=== PATIENT | female | born 1970 | race American Indian/Alaskan Native ===

== ENCOUNTER 2017-08-10 02:45 | Emergency (ER) | payer MEDICAID ==
[2017-08-10 02:45] VITALS: BMI 35.7
--- NOTE | 2017-08-10 03:20 | ED PDOC ---
Arrival/HPI - General Chief Complaint: High Blood Pressure Time Seen by Provider: 08/10/17 03:12 Historian: Patient - History of Present Illness Narrative History of Present Illness (Text): 08/10/17 03:19 A 46 year old female, whose past medical history includes RA and hypertension ( noncompliant with medication), presents to the emergency department complaining of headache. Patient reports she stopped taking her blood pressure medications about a year ago. Patient presents with headache and high blood pressure. Patient denies any chest pain, shortness of breath or any other complaints at this time. Symptom Onset: Sudden Symptom Course: Unchanged Activities at Onset: Rest Context: Home Past Medical History - Provider Review Nursing Documentation Reviewed: Yes - Infectious Disease Hx of Infectious Diseases: None - Cardiac Hx Cardiac Disorders: Yes Hx Hypertension: Yes - Pulmonary Hx Respiratory Disorders: No - Neurological Hx Neurological Disorder: No - HEENT Hx HEENT Disorder: Yes (BLURRY VISION) - Renal Hx Renal Disorder: No - Endocrine/Metabolic Hx Endocrine Disorders: No (GESTATIONAL DIABETES) - Hematological/Oncological Hx Blood Disorders: No - Integumentary Hx Dermatological Disorder: No - Musculoskeletal/Rheumatological Hx Musculoskeletal Disorders: Yes Hx Falls: No - Gastrointestinal Hx Gastrointestinal Disorders: No - Genitourinary/Gynecological Hx Genitourinary Disorders: No (SMOKES CIGARETTES,DRINKS ALCOHOL SOCIALLY) - Psychiatric Hx Psychophysiologic Disorder: No Hx Substance Use: No - Surgical History Hx Section: Yes (x2) Other/Comment: benign cyst removed from right breast - Anesthesia Hx Anesthesia: Yes Hx Anesthesia Reactions: No Hx Malignant Hyperthermia: No - Suicidal Assessment Feels Threatened In Home Enviroment: No Family/Social History - Physician Review Nursing Documentation Reviewed: Yes Family/Social History: No Known Family HX Smoking Status: Current Some Days Smoker Hx Alcohol Use: Yes (SOCIALLY) Frequency of alcohol use: Socially Hx Substance Use: No Allergies/Home Meds Allergies/Adverse Reactions: Allergies No Known Allergies Allergy (Verified 08/10/17 03:06) Review of Systems - Physician Review All systems were reviewed & negative as marked: Yes - Review of Systems Respiratory: absent: SOB Cardiovascular: absent: Chest Pain Neurological: Headache Physical Exam Vital Signs Reviewed: Yes Vital Signs Temp Pulse Resp BP Pulse Ox 08/10/17 06:20 98.2 F 90 18 172/95 H 100 08/10/17 05:26 96 H 175/95 H 08/10/17 04:42 92 H 17 156/100 H 100 08/10/17 04:37 96 H 171/113 H 08/10/17 03:53 89 201/120 H 08/10/17 03:10 98.2 F 94 H 18 224/144 H 98 Temperature: Afebrile Blood Pressure: Hypertensive Pulse: Regular Respiratory Rate: Normal Appearance: Positive for: Well-Appearing, Non-Toxic, Comfortable Pain Distress: None Mental Status: Positive for: Alert and Oriented X 3 - Systems Exam Head: Present: Atraumatic, Normocephalic Pupils: Present: PERRL Extroacular Muscles: Present: EOMI Conjunctiva: Present: Normal Mouth: Present: Moist Mucous Membranes Neck: Present: Normal Range of Motion Respiratory/Chest: Present: Clear to Auscultation, Good Air Exchange. No: Respiratory Distress, Accessory Muscle Use Cardiovascular: Present: Regular Rate and Rhythm, Normal S1, S2. No: Murmurs Abdomen: Present: Normal Bowel Sounds. No: Tenderness, Distention, Peritoneal Signs Back: Present: Normal Inspection Upper Extremity: Present: Normal Inspection. No: Cyanosis, Edema Lower Extremity: Present: Normal Inspection. No: Edema Neurological: Present: GCS=15, CN II-XII Intact, Speech Normal Skin: Present: Warm, Dry, Normal Color. No: Rashes Psychiatric: Present: Alert, Oriented x 3, Normal Insight, Normal Concentration Medical Decision Making ED Course and Treatment: 08/10/17 03:18 Impression: A 46 year old female with headache and high blood pressure. Plan: -- CT head -- EKG -- labs -- Apresoline, Reglan -- Reassess and disposition Prior Visits: Notes and results from previous visits were reviewed. Patient was last seen in the emergency department on 12/20/14 for evaluation of chest pain, headache and blurry vision. 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 There is mild patchy left more than right periventricular hypodensity likely representing small vessel ischemic change. No hemorrhage. Ventricles: Unremarkable. No ventriculomegaly. Bones/joints: Unremarkable. No acute fracture. Soft tissues: Unremarkable. Sinuses: Unremarkable. No acute sinusitis. Mastoid air cells: Unremarkable. No mastoid effusion. Orbits: The globe and lens are intact. IMPRESSION: No evidence of an acute intracranial hemorrhage, midline shift or mass effect is identified. Dictated and Authenticated by: Yecenia Chiu MD 08/10/17 05:00 On re-evaluation, patient feels better and is in no acute distress. I have discussed the results and plan with the patient, who expresses understanding. Patient in agreement with plan to be discharged home. Patient is stable for discharge. Patient was instructed to follow up with physician or return if symptoms worsen or new concerning symptoms arise. 08/10/17 05:01 EKG: Ordered, reviewed, and independently interpreted the EKG. Rate : 89 BPM Rhythm : NSR Interpretation : Nonspecific ST segment changes - Lab Interpretations Lab Results: 08/10/17 03:15 08/10/17 03:15 Lab Results 08/10/17 03:15: Sodium 140, Potassium 5.1 H, Chloride 102, Carbon Dioxide 31, Anion Gap 12, BUN 11, Creatinine 0.8, Est GFR ( Amer) > 60, Est GFR (Non- Af Amer) > 60, Random Glucose 136 H, Calcium 9.5, Total Bilirubin 1.0, AST 65 H , ALT 19, Alkaline Phosphatase 59, Total Protein 8.3, Albumin 4.4, Globulin 4.0 , Albumin/Globulin Ratio 1.1 08/10/17 03:15: WBC 8.6, RBC 4.94, Hgb 13.9, Hct 42.2, MCV 85.4, MCH 28.1, MCHC 32.9, RDW 13.9, Plt Count 197, MPV 12.6 H, Gran % 72.4 H, Lymph % (Auto) 19.1 L , Ware % (Auto) 6.2 H, Eos % (Auto) 1.9, Baso % (Auto) 0.4, Gran # 6.20, Lymph # (Auto) 1.6, Ware # (Auto) 0.5, Eos # (Auto) 0.2, Baso # (Auto) 0.03 I have reviewed the lab results: Yes - RAD Interpretation Radiology Orders: 08/10/17 03:15 HEAD W/O CONTRAST [CT] Stat - EKG Interpretation Interpreted by ED Physician: Yes Type: 12 lead EKG - Medication Orders Current Medication Orders: Discontinued Medications Hydralazine HCl (Apresoline) 10 mg IVP STAT STA Stop: 08/10/17 03:19 Last Admin: 08/10/17 03:53 Dose: 10 mg IVP Administration Document 08/10/17 03:53 IT (Rec: 08/10/17 03:53 IT [id number]) Charges for Administration # of IVP Administrations 1 MAR Pulse and Blood Pressure Document 08/10/17 03:53 IT (Rec: 08/10/17 03:53 IT [id number]) Pulse Pulse Rate (60-90) 89 Blood Pressure Blood Pressure (100/60-150/90) 201/120 Labetalol HCl (Trandate) 20 mg IV STAT STA Stop: 08/10/17 04:13 Last Admin: 08/10/17 04:37 Dose: 20 mg eMAR Start Stop Document 08/10/17 04:37 IT (Rec: 08/10/17 04:38 IT [id number]) Intravenous Solution Start Date 08/10/17 Start Time 04:38 MAR Pulse and Blood Pressure Document 08/10/17 04:37 IT (Rec: 08/10/17 04:38 IT [id number]) Pulse Pulse Rate (60-90) 96 Blood Pressure Blood Pressure (100/60-150/90) 171/113 Lisinopril (Zestril) 10 mg PO STAT STA Stop: 08/10/17 05:03 Lisinopril (Zestril) 10 mg PO STAT STA Stop: 08/10/17 05:02 Last Admin: 08/10/17 05:26 Dose: 10 mg MAR Pulse and Blood Pressure Document 08/10/17 05:26 IT (Rec: 08/10/17 05:26 IT [id number]) Pulse Pulse Rate (60-90) 96 Blood Pressure Blood Pressure (100/60-150/90) 175/95 Metoclopramide HCl (Reglan) 10 mg IVP ONCE ONE Stop: 08/10/17 03:15 Last Admin: 08/10/17 03:54 Dose: 10 mg IVP Administration Document 08/10/17 03:54 IT (Rec: 08/10/17 03:54 IT [id number]) Charges for Administration # of IVP Administrations 1 - Scribe Statement The provider has reviewed the documentation as recorded by the Richi Billingsley Provider Scribe Attestation: All medical record entries made by the Scribe were at my direction and personally dictated by me. I have reviewed the chart and agree that the record accurately reflects my personal performance of the history, physical exam, medical decision making, and the department course for this patient. I have also personally directed, reviewed, and agree with the discharge instructions and disposition. Disposition/Present on Arrival - Present on Arrival Any Indicators Present on Arrival: No History of DVT/PE: No History of Uncontrolled Diabetes: No Urinary Catheter: No History of Decub. Ulcer: No History Surgical Site Infection Following: None - Disposition Have Diagnosis and Disposition been Completed?: Yes Diagnosis: Hypertension Disposition: HOME/ ROUTINE Disposition Time: 05:00 Condition: GOOD Discharge Instructions (ExitCare): High Blood Pressure in Adults Prescriptions: Lisinopril [Prinivil] 10 mg PO DAILY #30 tablet Referrals: Park Schuster MD [Primary Care Provider] - Follow up with primary Forms: [facility] (Urdu)
[2017-08-10 03:59] LABS: BASO # 0.03 K/mm3 (0.0-2.0); BASO % 0.4 % (0.0-3.0); EOS # 0.2 (0.0-0.7); EOS % 1.9 % (1.5-5.0); GRAN # 6.2 (1.4-6.5); GRAN % 72.4 % (50.0-68.0); HEMOGLOBIN 13.9 g/dL (12.0-16.0); LYMPH # 1.6 (1.2-3.4); LYMPH % 19.1 % (22.0-35.0); MEAN CELL VOLUME 85.4 fl (80.0-105.0); MEAN CORPUSCULAR HEMOGLOBIN 28.1 pg (25.0-35.0); MEAN CORPUSCULAR HGB CONC 32.9 g/dl (31.0-37.0); MEAN PLATELET VOLUME 12.6 fl (7.0-11.0); MONO # 0.5 (0.1-0.6); MONO % 6.2 % (1.0-6.0); RBC 4.94 10^6/uL (3.5-6.1); RED CELL DISTRIBUTION WIDTH 13.9 % (11.5-14.5); WHITE BLOOD COUNT 8.6 10^3/ul (4.5-11.0)
[2017-08-10 04:03] LABS: CALCIUM 9.5 mg/dL (8.4-10.5); GFR AFRICAN-AMERICAN > 60; GFR NON-AFRICAN AMERICAN > 60
[2017-08-10 04:10] LABS: ALB/GLOB RATIO 1.1 (1.1-1.8); ALBUMIN 4.4 g/dL (3.0-4.8); ALT/SGPT 19 U/L (7-56); AST/SGOT 65 U/L (14-36); BLOOD UREA NITROGEN 11 mg/dL (7-21)
[2017-08-10] MEDS ORDERED: Labetalol 5 mg/ml Inj 20ML IV STA (04:12)
--- NOTE | 2017-08-10 04:40 | CT ---
EXAM: CT Head Without Intravenous Contrast CLINICAL HISTORY: 46 years old, female; Pain; Headache; Additional info: [facility] TECHNIQUE: Axial computed tomography images of the head/brain without intravenous contrast. All CT scans at this facility use one or more dose reduction techniques, viz.: automated exposure control; ma/kV adjustment per patient size (including targeted exams where dose is matched to indication; i.e. head); or iterative reconstruction technique. 331 images are submitted. Coronal and sagittal reformatted images were created and reviewed. Axial reformatted images were created and reviewed. COMPARISON: No relevant prior studies available. 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 There is mild patchy left more than right periventricular hypodensity likely representing small vessel ischemic change. No hemorrhage. Ventricles: Unremarkable. No ventriculomegaly. Bones/joints: Unremarkable. No acute fracture. Soft tissues: Unremarkable. Sinuses: Unremarkable. No acute sinusitis. Mastoid air cells: Unremarkable. No mastoid effusion. Orbits: The globe and lens are intact. IMPRESSION: No evidence of an acute intracranial hemorrhage, midline shift or mass effect is identified.
[2017-08-10 12:12] VITALS: BP 172/95; PULSE 90; RESP 18; TEMP 98.2; O2SAT 100
--- NOTE | 2017-08-10 18:31 | CARD ---
APPROVED REPORT EKG Measurement Heart [id number] <Conclusion> Normal sinus rhythm Right atrial enlargement Moderate voltage criteria for LVH, may be normal variant T wave abnormality, consider lateral ischemia Prolonged QT Abnormal ECG
== END 2017-08-10 06:22 | disposition home or self-care (01) ==
LOC: ED 02:45
DX: I10 Essential (primary) hypertension (principal); F17.200 Nicotine dependence, unspecified, uncomplicated
CPT/HCPCS: 70450; 80053; 85025; 93005; 96374; 96375; 99284; J0360; J2765